=== PATIENT | female | born 1945 | race Caucasian/White ===

== ENCOUNTER 2017-09-03 17:21 | Emergency (ER) | payer OTHER ==
[~2017-09-03] VITALS: Wt 61.7 kg
[~2017-09-03 17:21] MED LIST: ASA; ASPIRIN DELAYE325 MG PO; ASPIRIN81 M1 PO; FAMOTIDINE20 MG; IMDUR30 MG PO; IMDUR60 MG PO; LIPITOR40 MG PO; LISINOPRIL; LISINOPRIL2.5 MG PO; LOPRESSOR25 MG PO; METOPROLOL25 MG; Meclizine25 MG PO; NITRO STAT; NITROSTAT0.4 MG PO; NITROSTAT0.4 MG SL; PLAVIX75 MG PO; PRILOSEC20 MG PO; SYNTHROID25 MCG PO; [UNRECOGNIZED DRUG - OTHER]
== END 2017-09-03 17:38 | disposition home or self-care (01) ==
LOC: ED 17:21
DX: S05.02XA Injury of conjunctiva and corneal abrasion without foreign body, left eye, initial encounter (principal); R03.0 Elevated blood-pressure reading, without diagnosis of hypertension; Z88.2 Allergy status to sulfonamides; Z79.82 Long term (current) use of aspirin; Z90.49 Acquired absence of other specified parts of digestive tract; X58.XXXA Exposure to other specified factors, initial encounter; Y93.89 Activity, other specified; Y92.89 Other specified places as the place of occurrence of the external cause; Y99.8 Other external cause status

== ENCOUNTER → 2021-01-02 | Outpatient (CLI) | payer OTHER | END | disposition home or self-care (01) | LOC: RAD 11:24 | PROVIDERS: ATTEND Internal Medicine | DX: M51.36 Other intervertebral disc degeneration, lumbar region (principal) ==

== ENCOUNTER 2021-12-22 23:04 | Emergency (ER) | payer OTHER ==
[~2021-12-22] VITALS: Ht 162.5 cm; Wt 68.0 kg
[2021-12-23] MEDS ORDERED: PREDNISONE10 MG PO (01:36)
[2021-12-23] MEDS ORDERED: PERCOCET 5-3251 EACH PO (01:36)
== END 2021-12-23 02:07 | disposition home or self-care (01) ==
LOC: ED 23:04
DX: M54.42 Lumbago with sciatica, left side (principal); Z88.8 Allergy status to other drugs, medicaments and biological substances; Z79.899 Other long term (current) drug therapy; Z79.82 Long term (current) use of aspirin; Z90.710 Acquired absence of both cervix and uterus

== ENCOUNTER → 2022-06-03 | Outpatient (CLI) | payer OTHER ==
[~2022-06-03] MED LIST changes: +PERCOCET 5-3251 EACH PO; +PREDNISONE10 MG PO
[2022-06-03 10:54] LABS: BILIRUBIN Negative (Negative); BLOOD Negative (Negative); CLARITY Clear (Clear); COLOR Yellow (Yellow); GLUCOSE Negative (Negative); KETONE Negative (Negative); LEUKO ESTERASE 1+ (Negative); NITRITE Negative (Negative); PH 6.5 (4.5-8.0); SPECIFIC GRAVITY <= 1.005 (1.001-1.030); UROBILINOGEN 0.2 E.U./dl (0.0-1.0)
[2022-06-03 11:52] LABS: BACTERIA TRACE; RBC 0-2 rbc/hpf (0-2); WBC 0-2 wbc/hpf (0-5)
== END | disposition home or self-care (01) ==
LOC: LAB 10:17
PROVIDERS: ATTEND Internal Medicine
DX: Z01.812 Encounter for preprocedural laboratory examination (principal); R30.0 Dysuria

== ENCOUNTER → 2023-10-03 | Outpatient (CLI) | payer OTHER | END | disposition home or self-care (01) | LOC: MAMMO 13:23 | PROVIDERS: ATTEND Internal Medicine | DX: Z12.31 Encounter for screening mammogram for malignant neoplasm of breast (principal) ==